=== PATIENT | male | born 1950 | race Caucasian/White ===

== ENCOUNTER 2020-08-26 20:03 | Emergency (ER) | payer OTHER ==
[2020-08-26] MEDS ORDERED: predniSONE 20 MG TAB ONE (20:34)
[2020-08-26] MEDS ORDERED: ALBUTEROL 2.5 MG/3 ML NEB SOL ONE (20:34)
[2020-08-26 21:01] LABS: Basophils % 0.8 % (0-1.3); Hematocrit 42.7 % (39.6-49.0); Lymphocytes % 20.4 % (15.3-44.8); MPV 8.4 fL (7.6-11.3); RBC Red Blood Cell Count 4.43 M/uL (4.33-5.43)
[2020-08-26 21:02] LABS: Protime INR 0.92
[2020-08-26 21:19] LABS: ALT/SGPT 28 U/L (12-78); AST/SGOT 16 U/L (15-37); Albumin 3.8 g/dL (3.4-5.0); Alkaline Phosphatase 84 U/L (45-117); BUN Blood Urea Nitrogen 12 mg/dL (7-18); Bicarbonate 30 mmol/L (21-32); Bilirubin Direct 0.2 mg/dL (0-0.2); Bilirubin Total 0.7 mg/dL (0.2-1.0); Glucose Level 112 mg/dL (74-106); Magnesium 2.3 mg/dL (1.8-2.4); NT PRO-BNP 302 pg/mL (<125); Potassium 4.3 mmol/L (3.5-5.1); Protein, Total 7.6 g/dL (6.4-8.2); Sodium Level 140 mmol/L (136-145); Troponin (Emerg Dept Use Only) < 0.02 ng/mL (0.0-0.045)
--- NOTE | 2020-08-26 22:00 | RAD REPORT ---
EXAM DESCRIPTION: RAD - Chest Single View - 08/26/2020 9:47 pm CLINICAL HISTORY: COPD;SOB Chest pain. COMPARISON: CHEST PA AND LAT 2 VIEW dated 08/25/2015; CHEST PA AND LAT 2 VIEW dated 08/15/2014; CHES T PA AND LAT 2 VIEW dated 02/14/2012; CHEST SINGLE VIEW dated 02/13/2009 FINDINGS: Portable technique limits examination quality. The lungs are emphysematous but grossly clear. The heart is normal in size. No displaced fractures. IMPRESSION: Prominent COPD.
[2020-08-26] MEDS ORDERED: LEVALBUTEROL 0.63 MG/3 ML NEB ONE (22:35)
[2020-08-26] MEDS ORDERED: LEVALBUTEROL 1.25 MG/3 ML NEB ONE (22:38)
--- NOTE | 2020-08-26 23:09 | ER ---
Nurse's Notes [facility] Name: Jamie Granda Age: 69 yrs Sex: Male : 1950 Arrival Date: 08/26/2020 Time: 20:03 Bed 2 Private MD: Diagnosis: Chronic obstructive pulmonary disease with (acute) exacerbation Presentation: 08/26 20:05 Chief complaint: EMS states: Reports he started having shortness of breath yesterday ea reports he took albuterol prior to EMS arrival without relief. EMS reports they gave one albuterol Atrovent treatment prior to arrival. Coronavirus screen: At this time, the client does not indicate any symptoms associated with coronavirus-19. Ebola Screen: No symptoms or risks identified at this time. Initial Sepsis Screen: Does the patient meet any 2 criteria? RR > 20 per min. Does the patient have a suspected source of infection? No. Patient's initial sepsis screen is negative. Risk Assessment: Do you want to hurt yourself or someone else? Patient reports no desire to harm self or others. Onset of symptoms was August 26, 2020. 20:05 Method Of Arrival: EMS: [facility] ea 20:05 Acuity: ABHISHEK 3 ea Triage Assessment: 20:13 General: Appears uncomfortable, Behavior is appropriate for age. Pain: Denies pain. ea Neuro: Level of Consciousness is awake, alert, obeys commands, Oriented to person, place, time, situation. Respiratory: Reports shortness of breath since yesterday Onset: The symptoms/episode began/occurred yesterday, the patient has mild shortness of breath. Historical: - Allergies: 20:13 PENICILLINS; ea 20:13 Wasps; ea - Home Meds: 20:13 Centrum Silver oral oral [Active]; carvedilol 6.25 mg oral tab 1 tab 2 times per day ea [Active]; irbesartan 300 mg oral tab 1 tab once daily [Active]; spironolactone 25 mg Oral tab 1 tab once daily [Active]; omega-3 fatty acids 1,000 mg oral cap [Active]; aspirin 81 mg Oral chew 1 tab once daily [Active]; Endur-Acin 500 mg oral TbER 1 tabs once daily [Active]; Viagra 100 mg Oral tab 1 tab once daily [Active]; epi pen as needed [Active]; albuterol sulfate 90 mcg/actuation Inhl HFAA [Active]; Anoro Ellipta 62.5-25 mcg/actuation inhalation dsdv 1 puff once daily [Active]; Nasacort 55 mcg Nasal spra [Active]; - Immunization history:: Adult Immunizations up to date. - Social history:: Smoking status: Patient denies any tobacco usage or history of. Screenin:04 Abuse screen: Denies threats or abuse. Nutritional screening: No deficits noted. ea Tuberculosis screening: No symptoms or risk factors identified. Fall Risk None identified. Assessment: 20:12 General: Appears in no apparent distress. Pain: Denies pain. Neuro: Level of ea Consciousness is awake, alert, obeys commands, Oriented to person, place, time, situation. Cardiovascular: Rhythm is sinus rhythm. Respiratory: Airway is patent Respiratory effort is even, labored, Respiratory pattern is tachypnea Breath sounds with wheezes. Derm: Skin is pink, warm \T\ dry. 21:30 Reassessment: Patient and/or family updated on plan of care and expected duration. Pain ea level reassessed. Patient is alert, oriented x 3, equal unlabored respirations, skin warm/dry/pink. 22:45 Reassessment: Patient and/or family updated on plan of care and expected duration. Pain ll2 level reassessed. Patient is alert, oriented x 3, equal unlabored respirations, skin warm/dry/pink. Vital Signs: 20:05 BP 149 / 96; Pulse 86; Resp 22; Temp 98.8; Pulse Ox 100% on 3 lpm NC; Weight 90.72 kg; ea Height 6 ft. 1 in. (185.42 cm); 20:30 BP 155 / 96; Pulse 78; Resp 20; Pulse Ox 98% ; ea 21:30 BP 128 / 83; Pulse 78; Resp 20; Pulse Ox 98% on 3 lpm NC; ea 20:05 Body Mass Index 26.39 (90.72 kg, 185.42 cm) ea ED Course: 20:03 Patient arrived in ED. am2 20:05 Afshin Resendez NP is PHCP. pm1 20:05 Dionte Packer MD is Attending Physician. pm1 20:08 Triage completed. ea 20:08 Patient has correct armband on for positive identification. Bed in low position. Call ea light in reach. Side rails up X2. 20:08 Arm band placed on right wrist. Patient placed in an exam room, on a stretcher, on ea oxygen, on aviation electronic warfare operator, on pulse oximetry. 20:45 Inserted saline lock: 20 gauge in right antecubital area, using aseptic technique. ea Blood collected. 20:56 Chinyere Whitley, FANNIE is Primary Nurse. ea 21:48 XRAY Chest (1 view) In Process Unspecified. EDMS 23:08 Daryn Flores MD is Referral Physician. pm1 23:34 No provider procedures requiring assistance completed. IV discontinued, intact, ll2 bleeding controlled, No redness/swelling at site. Pressure dressing applied. Administered Medications: 20:19 Not Given (Physician Discretion): Albuterol - atroVENT (3:1) (2.5 mg - 0.5 mg) 3 ml pm1 Nebulizer once 20:40 Drug: predniSONE 60 mg Route: PO; ea 21:35 Follow up: Response: No adverse reaction ea 20:40 Drug: Albuterol 5 mg Route: Inhalation; ea 21:30 Follow up: Response: No adverse reaction ea 22:16 CANCELLED (Physician Discretion): Xopenex 1.25 mg Inhalation once pm1 22:25 Drug: Xopenex (3) 1.25 mg Route: Inhalation; ll2 23:02 Drug: Tussionex Pennkinetic ER 5 ml Route: PO; ea 23:13 Follow up: Response: No adverse reaction ll2 23:32 Drug: AZITHromycin 500 mg Route: PO; ll2 23:32 Follow up: Response: Medication administered at discharge. ll2 Outcome: 23:09 Discharge ordered by . pm1 23:35 Discharged to home ambulatory. ll2 23:35 Condition: stable 23:35 Discharge instructions given to patient, Instructed on discharge instructions, follow up and referral plans. medication usage, Demonstrated understanding of instructions, follow-up care, medications, Prescriptions given X 4. 23:36 Patient left the ED. ll2 Addendum: 08/29/2020 10:10 Addendum: COVID-19 Result: Negative result given to RN to notify pt. Notified pt of i w negative COVID 19 swab results. Pt advised that even with a negative test result they should remain in isolation until symptom free for 3 days without medication. Pt also advised to return to the ED for worsening symptoms. Signatures: Dispatcher [employer] Mariely Fish, RN RN Afshin Alfonso, BÁRBARA NURSE AIDE pm1 Magnolia Huertas am2 Chinyere Whitley RN RN Chanel Temple RN RN ll2
--- NOTE | 2020-08-26 23:09 | EDPHYS ---
Physician Documentation [facility] Name: Jamie Granda Age: 69 yrs Sex: Male : 1950 Arrival Date: 08/26/2020 Time: 20:03 Bed 2 Private MD: ED Physician Dionte Packer HPI: 08/26 20:10 This 69 yrs old Male presents to ER via EMS with complaints of Breathing pm1 Difficulty. 20:10 The patient has shortness of breath at rest. Onset: The symptoms/episode began/occurred pm1 last night. Duration: The symptoms are continuous. The patient's shortness of breath is alleviated by nebulizer treatment, prior to arrival. Associated signs and symptoms: Pertinent positives: non-productive cough, wheezing, Pertinent negatives: chest pain, fever. Severity of symptoms: in the emergency department the symptoms have improved by EMS treatment, but worse prior to EMS arrival. The patient has not experienced similar symptoms in the past, Has not experienced a COPD exacerbation in the past. The patient has not recently seen a physician, Dr. Flores manages his COPD. Historical: - Allergies: 20:13 PENICILLINS; ea 20:13 Wasps; ea - Home Meds: 20:13 Centrum Silver oral oral [Active]; carvedilol 6.25 mg oral tab 1 tab 2 times per day ea [Active]; irbesartan 300 mg oral tab 1 tab once daily [Active]; spironolactone 25 mg Oral tab 1 tab once daily [Active]; omega-3 fatty acids 1,000 mg oral cap [Active]; aspirin 81 mg Oral chew 1 tab once daily [Active]; Endur-Acin 500 mg oral TbER 1 tabs once daily [Active]; Viagra 100 mg Oral tab 1 tab once daily [Active]; epi pen as needed [Active]; albuterol sulfate 90 mcg/actuation Inhl HFAA [Active]; Anoro Ellipta 62.5-25 mcg/actuation inhalation dsdv 1 puff once daily [Active]; Nasacort 55 mcg Nasal spra [Active]; - Immunization history:: Adult Immunizations up to date. - Social history:: Smoking status: Patient denies any tobacco usage or history of. ROS: 20:16 Constitutional: Negative for fever, chills, and weight loss, ENT: Negative for injury, pm1 pain, and discharge, Neck: Negative for injury, pain, and swelling, Cardiovascular: Negative for chest pain, palpitations, and edema. 20:16 Abdomen/GI: Negative for abdominal pain, nausea, vomiting, diarrhea, and constipation, Back: Negative for injury and pain, MS/Extremity: Negative for injury and deformity, Skin: Negative for injury, rash, and discoloration, Neuro: Negative for headache, weakness, numbness, tingling, and seizure. 20:16 Respiratory: Positive for cough, shortness of breath. Exam: 20:16 Constitutional: This is a well developed, well nourished patient who is awake, alert, pm1 and in no acute distress. Head/Face: Normocephalic, atraumatic. 20:16 Back: No spinal tenderness. No costovertebral tenderness. Full range of motion. Skin: Warm, dry with normal turgor. Normal color with no rashes, no lesions, and no evidence of cellulitis. MS/ Extremity: Pulses equal, no cyanosis. Neurovascular intact. Full, normal range of motion. 20:16 Cardiovascular: Exam negative for acute changes, Rate: normal, Rhythm: regular, Pulses: no pulse deficits are appreciated, Edema: is not appreciated. 20:16 Respiratory: the patient does not display signs of respiratory distress, Respirations: normal, Breath sounds: wheezing: is heard diffusely. 20:16 Abdomen/GI: Exam negative for acute changes, Inspection: abdomen appears normal, Palpation: abdomen is soft and non-tender. 20:16 Neuro: Exam negative for acute changes, Orientation: is normal, Motor: is normal, moves all fours. 20:43 ECG was reviewed by the Attending Physician. pm1 Vital Signs: 20:05 BP 149 / 96; Pulse 86; Resp 22; Temp 98.8; Pulse Ox 100% on 3 lpm NC; Weight 90.72 kg; ea Height 6 ft. 1 in. (185.42 cm); 20:30 BP 155 / 96; Pulse 78; Resp 20; Pulse Ox 98% ; ea 21:30 BP 128 / 83; Pulse 78; Resp 20; Pulse Ox 98% on 3 lpm NC; ea 20:05 Body Mass Index 26.39 (90.72 kg, 185.42 cm) ea MDM: 20:05 Patient medically screened. pm1 23:08 Data reviewed: vital signs. Data interpreted: Pulse oximetry: on room air is 98 %. pm1 Interpretation: normal. 23:08 Counseling: I had a detailed discussion with the patient and/or guardian regarding: the pm1 historical points, exam findings, and any diagnostic results supporting the discharge/admit diagnosis, lab results, radiology results, the need for outpatient follow up, a services clerk, to return to the emergency department if symptoms worsen or persist or if there are any questions or concerns that arise at home. 08/26 20:10 Order name: Basic Metabolic Panel; Complete Time: 22:10 pm1 08/26 20:10 Order name: CBC with Diff; Complete Time: 21:10 pm1 08/26 20:10 Order name: LFT's; Complete Time: 22:10 pm1 08/26 20:10 Order name: Magnesium; Complete Time: 22:10 pm1 08/26 20:10 Order name: NT PRO-BNP; Complete Time: 22:10 pm1 08/26 20:10 Order name: PT-INR; Complete Time: 21:10 pm1 08/26 20:10 Order name: Troponin (emerg Dept Use Only); Complete Time: 22:10 pm1 08/26 20:10 Order name: XRAY Chest (1 view); Complete Time: 22:10 pm1 08/26 20:10 Order name: Flu; Complete Time: 22:10 pm1 08/26 20:10 Order name: Strep; Complete Time: 22:10 pm1 08/26 20:10 Order name: COVID-19 pm1 08/26 21:21 Order name: Throat Culture [facility] 08/26 20:10 Order name: EKG; Complete Time: 20:11 pm08/26 20:10 Order name: Cardiac monitoring; Complete Time: 20:35 pm1 08/26 20:10 Order name: EKG - Nurse/Tech; Complete Time: 20:35 pm1 08/26 20:10 Order name: IV Saline Lock; Complete Time: 21:36 pm1 08/26 20:10 Order name: Labs collected and sent; Complete Time: 21:36 pm1 08/26 20:10 Order name: O2 Per Protocol; Complete Time: 21:36 pm1 08/26 20:10 Order name: O2 Sat Monitoring; Complete Time: 21:36 pm1 EC:43 Rate is 79 beats/min. Rhythm is regular, Normal Sinus Rhythm with No ectopy. No Q pm1 waves. T waves are Normal. No ST changes noted. Clinical impression: Normal ECG. Administered Medications: 20:19 Not Given (Physician Discretion): Albuterol - atroVENT (3:1) (2.5 mg - 0.5 mg) 3 ml pm1 Nebulizer once 20:40 Drug: predniSONE 60 mg Route: PO; ea 21:35 Follow up: Response: No adverse reaction ea 20:40 Drug: Albuterol 5 mg Route: Inhalation; ea 21:30 Follow up: Response: No adverse reaction ea 22:16 CANCELLED (Physician Discretion): Xopenex 1.25 mg Inhalation once pm1 22:25 Drug: Xopenex (3) 1.25 mg Route: Inhalation; ll2 23:02 Drug: Tussionex Pennkinetic ER 5 ml Route: PO; ea 23:13 Follow up: Response: No adverse reaction ll2 23:32 Drug: AZITHromycin 500 mg Route: PO; ll2 23:32 Follow up: Response: Medication administered at discharge. ll2 Disposition: 08/27 11:00 Co-signature as Attending Physician, Dionte Packer MD I agree with the assessment and lyndsey plan of care. Disposition: 08/26/20 23:09 Discharged to Home. Impression: Chronic obstructive pulmonary disease with (acute) exacerbation. - Condition is Stable. - Discharge Instructions: Chronic Obstructive Pulmonary Disease Exacerbation. - Prescriptions for Zithromax Z- Sage 250 mg Oral Tablet - take 1 tablet by ORAL route as directed for 5 days Day 1 - take two (2) tablets one time. Day 2, 3, 4 , 5 take one (1) tablet once daily.; 6 tablet. Albuterol Sulfate 90 mcg/actuation - inhale 1-2 puff by INHALATION route every 4-6 hours; 1 Inhaler. Guaifenesin AC 10- 100 mg/5 mL Oral Liquid - take 10 milliliter by ORAL route every 4 hours As needed; 240 milliliter. Medrol (Sage) 4 mg Oral Tablets, Dose Pack - take 1 tablet by ORAL route as directed - follow package instructions; 1 packet. - Medication Reconciliation Form, Thank You Letter, Antibiotic Education, Prescription Opioid Use form. - Follow up: Daryn Flores MD; When: 2 - 3 days; Reason: Recheck today's complaints, Continuance of care, Re-evaluation by your physician. - Problem is new. - Symptoms have improved. Signatures: Dispatcher [employer] EDDionte Shelton MD MD cha Marinas, Patrick, SCALE ADJUSTER SCALE ADJUSTER pm1 Chinyere Whitley, RN RN Chanel Temple RN RN ll2 Corrections: (The following items were deleted from the chart) 08/26 22:16 22:15 Xopenex 1.25 mg Inhalation once ordered. james pm1 23:36 23:09 08/26/2020 23:09 Discharged to Home. Impression: Chronic obstructive pulmonary ll2 disease with (acute) exacerbation. Condition is Stable. Forms are Medication Reconciliation Form, Thank You Letter, Antibiotic Education, Prescription Opioid Use. Follow up: Daryn Flores; When: 2 - 3 days; Reason: Recheck today's complaints, Continuance of care, Re-evaluation by your physician. Problem is new. Symptoms have improved. pm1
[2020-08-26] MEDS ORDERED: HYDROCODONE/CHLORPHEN 5 ML/OSYR ONE (23:14)
[2020-08-26] MEDS ORDERED: AZITHROMYCIN 250 MG TAB ONE (23:33)
[2020-08-27 06:46] VITALS: TEMP 98.8
[2020-08-27 06:48] VITALS: O2SAT 98
[2020-08-27 06:50] VITALS: BP 128/83
== END 2020-08-26 23:36 | disposition home or self-care (01) ==
LOC: ER 20:03
DX: J44.1 Chronic obstructive pulmonary disease with (acute) exacerbation (principal); Z20.828 Contact with and (suspected) exposure to other viral communicable diseases; Z79.82 Long term (current) use of aspirin; Z88.0 Allergy status to penicillin; Z91.038 Other insect allergy status
CPT/HCPCS: 93005; 87070; 85025; 80048; 36415; 83735; 85610; 80076; 87081; 84484; 83880; 87804 ×2; 71045; 99285; U0002; J7512

== ENCOUNTER 2025-01-13 11:36 | Inpatient (IN) | payer OTHER ==
--- OUTSIDE RECORDS SUMMARY | 2025-01-13 11:41 | XMS REPORT | Continuity of Care Document ---
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 Name Role Phone Sandra GUAN, Daryn Hodge Primary Care Physician [phone] Francois Engle Attending Clinician Unavailable Problems Condition Name Condition Details Condition Category Status Onset Date Resolution Date Last Treatment Date Treating Clinician Comments Source [id number] Benign prostatic hyperplasi a with lower urinary tract symptoms Problem [facility] [id number] Other obstructiv e and reflux uropathy Problem [facility] Elevated PSA Elevated PSA Problem [facility] [id number] Right inguinal hernia Problem [facility] Malignant tumor of prostate CA of prostate Problem [facility] [id number] Lower obstructiv e uropathy Problem [facility] [id number] S/P radiation > 12 weeks Problem Common [facility] [id number] BPH loc w/o ur obs/LUTS Problem [facility] [id number] Testicular atrophy Problem [facility] [id number] OAB (overactiv e bladder) Problem [facility] [id number] Prostate nodule Problem [facility] [id number] Cancer of prostate with intermedia te recurrence risk (stage T2b-c or [place] 7 or PSA 10-20) Problem Common [facility] Allergies, Adverse Reactions, Alerts Allergy Name Allergy Type Status Severity Reaction(s) Onset Date Inactive Date Treating Clinician Comments Source penicili in (Not Checked) Propensi ty to adverse reaction to drug Active 11-28 00:00: 00 Diego Honeycutt 0 Drug allergy Active Unknown [facility] 8890 Drug allergy Active Unknown [facility] Social History Social Habit Start Date Stop Date Quantity Comments Source Sex Assigned At [facility] History of Tobacco Use [facility] Smoking Status Start Date Stop Date Source Former Smoker 2024-11-22 00:00:00 2024-11-22 00:00:00 [facility] Medications Ordered Medication Name Filled Medication Name Start Date Stop Date Current Medication? Ordering Clinician Indication Dosage Frequency Signature (SIG) Comments Components Source spironolact one 25 mg tablet 11-28 00:00: 00 Yes 5mg Diego Honeycutt carvedilol 6.25 mg tablet 11-19 00:00: 00 Yes mg Diego Honeycutt spironolact one 25 mg tablet 11-19 00:00: 00 Yes mg Diego Honeycutt irbesartan 300 mg tablet 11-19 00:00: 00 Yes mg Diego Honeycutt albuterol sulfate HFA 90 mcg/actuati on aerosol inhaler 11-19 00:00: 00 Yes mcg/act uation Diego Honeycutt Trelegy Ellipta 100 mcg-62.5 mcg-25 mcg powder for inhalation - 00:00: 00 Yes mcg Diego Honeycutt solifenacin 5 mg tablet 2-16 00:00: 00 Yes mg Diego Honeycutt alfuzosin ER 10 mg tablet,exte nded release 24 hr 1- 00:00: 00 Yes mg Diego Honeycutt Solifenacin Succinate 5 MG Solifenacin Succinate 5 MG 2023-10 2-06 00:00: 00 No 1{table t} QD Solifenaci n Succinate 5 MG Tadalafil 5 MG Tadalafil 5 MG 2023-10 0-30 00:00: 00 No 1{table t} QD Tadalafil 5 MG prednisone 10 mg tablet 7-29 00:00: 00 Yes mg Diego Honeycutt Gentamicin 80mg Gentamicin 80mg 2-08 00:00: 00 No 240mg [facility] Carvedilol 6.25 MG Carvedilol 6.25 MG No Carvedilol 6.25 MG Centrum Silver - Centrum Silver - No Centrum Silver - Nasacort AQ Nasacort AQ No Na sacort AQ [place] 3 1200 MG [place] 3 1200 MG No 1{capsu le} QD [place] 3 1200 MG predniSONE 10 MG predniSONE 10 MG No 1{table t} QD predniSONE 10 MG Irbesartan 300 MG Irbesartan 300 MG No 1{table t} QD Irbesartan 300 MG Alfuzosin HCl ER 10 MG Alfuzosin HCl ER 10 MG No QD Alfuzosin HCl ER 10 MG Viagra 100 MG Viagra 100 MG No 1{table t_as_ne eded} QD Viagra 100 MG Endur-Acin 500 MG Endur-Acin 500 MG No 1{table t_with_ food} QD Endur-Acin 500 MG Spironolact one 25 MG Spironolact one 25 MG No 1{table t} Spironolac tone 25 MG Vital Signs Vital Name Observation Time Observation Value Comments S ource oximetry 2024-11-22 11:00:00 97 % Commo n [facility] respiratory rate 2024-11-22 11:00:00 18 /min [facility] blood pressure systolic 2024-11-22 11:00:00 136 mm[Hg] [facility] blood pressure diastolic 2024-11-22 11:00:00 80 mm[Hg] [facility] height 2024-11-22 11:00:00 73.5 [in_i] Comm on [facility] weight 2024-11-22 11:00:00 197 [lb_av] Comm on [facility] temperature 2024-11-22 11:00:00 97 [degF] Comm on [facility] bmi 2024-11-22 11:00:00 25.64 kg/m2 Comm on [facility] height 2024-09-07 09:15:00 73.5 [in_i] Comm on [facility] weight 2024-09-07 09:15:00 201.8 [lb_av] Co on [facility] temperature 2024-09-07 09:15:00 96.4 [degF] Com mon [facility] bmi 2024-09-07 09:15:00 26.26 kg/m2 Comm on [facility] oximetry 2024-09-07 09:15:00 96 % Commo n [facility] respiratory rate 2024-09-07 09:15:00 18 /min Common [facility] blood pressure systolic 2024-09-07 09:15:00 136 mm[Hg] Common [facility] blood pressure diastolic 2024-09-07 09:15:00 74 mm[Hg] [facility] height 2024-08-01 14:15:00 73.5 [in_i] Comm on [facility] weight 2024-08-01 14:15:00 199.0 [lb_av] Co mmon [facility] temperature 2024-08-01 14:15:00 97.2 [degF] Com mon [facility] bmi 2024-08-01 14:15:00 25.9 kg/m2 Commo n [facility] oximetry 2024-08-01 14:15:00 96 % Commo n [facility] respiratory rate 2024-08-01 14:15:00 18 /min Common [facility] blood pressure systolic 2024-08-01 14:15:00 132 mm[Hg] Common [facility] t [facility] blood pressure diastolic 2024-08-01 14:15:00 80 mm[Hg] [facility] height 2024-02-22 16:00:00 73.5 [in_i] Comm on [facility] weight 2024-02-22 16:00:00 202 [lb_av] Comm on [facility] temperature 2024-02-22 16:00:00 97.5 [degF] Com mon [facility] bmi 2024-02-22 16:00:00 26.29 kg/m2 Comm on [facility] oximetry 2024-02-22 16:00:00 96 % Commo n [facility] respiratory rate 2024-02-22 16:00:00 18 /min Common [facility] blood pressure systolic 2024-02-22 16:00:00 135 mm[Hg] [facility] blood pressure diastolic 2024-02-22 16:00:00 82 mm[Hg] [facility] height 2023-11-23 17:45:00 73.5 [in_i] Comm on [facility] weight 2023-11-23 17:45:00 209.2 [lb_av] Co mmon [facility] temperature 2023-11-23 17:45:00 97.2 [degF] Com [facility] bmi 2023-11-23 17:45:00 27.22 kg/m2 Comm on [facility] oximetry 2023-11-23 17:45:00 96 % Commo n [facility] respiratory rate 2023-11-23 17:45:00 18 /min Common [facility] blood pressure systolic 2023-11-23 17:45:00 128 mm[Hg] Common Spiri t [facility] blood pressure diastolic 2023-11-23 17:45:00 78 mm[Hg] [facility] height 2023-11-10 15:30:00 73.5 [in_i] Comm on [facility] weight 2023-11-10 15:30:00 200 [lb_av] Comm on [facility] temperature 2023-11-10 15:30:00 97.6 [degF] Com [facility] bmi 2023-11-10 15:30:00 26.03 kg/m2 Comm on [facility] oximetry 2023-11-10 15:30:00 99 % Commo n [facility] respiratory rate 2023-11-10 15:30:00 18 /min [facility] blood pressure systolic 2023-11-10 15:30:00 146 mm[Hg] Common [facility] blood pressure diastolic 2023-11-10 15:30:00 71 mm[Hg] [facility] height 2023-09-02 09:30:00 73.5 [in_i] Comm on [facility] weight 2023-09-02 09:30:00 203.8 [lb_av] Co mmon [facility] temperature 2023-09-02 09:30:00 97.2 [degF] Com mon [facility] bmi 2023-09-02 09:30:00 26.52 kg/m2 Comm on [facility] oximetry 2023-09-02 09:30:00 98 % Commo n [facility] respiratory rate 2023-09-02 09:30:00 18 /min [facility] blood pressure systolic 2023-09-02 09:30:00 128 mm[Hg] [facility] blood pressure diastolic 2023-09-02 09:30:00 78 mm[Hg] [facility] Heart Rate 2024-11-28 08:59:00 84.00 /min Luciakeagan Honeycutt Respiratory Rate 2024-11-28 08:59:00 Diego Honeycutt BP Systolic 2024-11-28 08:59:00 111 mm[Hg] Step lavelle Honeycutt BP Diastolic 2024-11-28 08:59:00 75 mm[Hg] Jameson Honeycutt Weight Measured 2024-11-28 08:59:00 191.40 pounds Diego Honeycutt Height Measured 2024-11-28 08:59:00 73.00 inches Diego Ting Honeycutt Body Temperature 2024-11-28 08:59:00 97.00 degrees Diego Maguire Yinka Procedures Procedure Date / Time Performed Performing Clinicia n Source PVR [facility]23-09[facility]02 [facility] Encounters Start Date/Time End Date/Time Encounter Type Admission Type Attending [facility] Care Department Encounter ID Source 2023-09-07 17:33:00 Outpatient Francois Engle ST[facility] STLMLC [id number] [facility] 2023-09-02 08:53:00 Outpatient Francois Engle [facility] STL[facility] [id number] [facility] 2023-09-01 10:44:00 Outpatient Francois Engle [facility] STLMLC [id number] [facility] 2021-10-28 12:18:05 Outpatient STLMLC STL[facility]C [id number] [facility] 2021-10-28 12:13:55 Outpatient STLMLC STLMLC [id number] [facility] 2024-11-28 08:57:29 2024-11-28 08:57:29 Outpatient SFA SFA [id number] Diego Maguire Yinka 2024-11-28 00:00:00 2024-11-28 00:00:00 Outpatient Visit SFA SFA [id number] Diego Maguire Yinka 2024-11-22 00:00:00 2024-11-22 00:00:00 OFFICE VISIT ESTAB PT LEVEL 4 STLMLC STLMLC [id number] [facility] 2024-09-07 00:00:00 2024-09-07 00:00:00 OFFICE VISIT ESTAB PT LEVEL 4 STLMLC STLMLC [id number] [facility] 2024-08-01 00:00:00 2024-08-01 00:00:00 OFFICE VISIT ESTAB PT LEVEL 3 STLMLC STLMLC [id number] [facility] 2024-07-16 00:00:00 2024-07-16 00:00:00 ([facility]) STLMLC STLMLC [id number] [facility] 2024-04-25 00:00:00 2024-04-25 00:00:00 (TEL) STLMLC STLMLC [id number] [facility] 2024-02-22 00:00:00 2024-02-22 00:00:00 OFFICE VISIT ESTAB PT LEVEL 4 STLMLC STLMLC [id number] [facility] 2024-02-09 00:00:00 2024-02-09 00:00:00 (WEB) STLMLC STLMLC [id number] [facility] 2023-12-08 00:00:00 2023-12-08 00:00:00 (TEL) STLMLC STLMLC [id number] [facility] 2023-11-23 00:00:00 2023-11-23 00:00:00 OFFICE VISIT ESTAB PT LEVEL 5 STLMLC STLMLC [id number] [facility] 2023-11-10 00:00:00 2023-11-10 00:00:00 (PROC) Procedure STLMLC STLMLC [id number] [facility] 2023-09-02 00:00:00 2023-09-02 00:00:00 OFFICE VISIT NEW PT LEVEL 3 STLMLC STLC [id number] [facility] Results Test Description Test Time Test Comments Results Result Co mments Source [facility], [id number] 07:03:00* Test Item Value Reference Range Interpretation Comme nts PSA, TOTAL (test code = 85291954) 0.09 ng/mL <=4.00 N The total PSA v alue from this assay system is standardized against the WHO standard. The test result will be approximately 20% lower when compared to the equimolar-standardized total PSA ([place]). Comparison of serial PSA results should be interpreted with this fact in mind. This test was performed using the Siemens chemiluminescent method. Values obtained from different assay methods cannot be usedinterchangeably. PSA levels, regardless ofvalue, should not be interpreted as absoluteevidence of the presence or absence of disease. FASTING:[facility],[id number] 21:30:00* Test Item Value Reference Range Interpretation Comme nts TESTOSTERONE, TOTAL, MALES (ADULT), [place] (test code = [id number]) 25 ng/dL 250-827 L In hypogonadal m ales, Testosterone, Total, LC/MS/MS,is the recommended assay due to the diminishedaccuracy of immunoassay at levels below 250 ng/dL.This test code (09968) must be collected in ared-top tube with no gel. FASTING:[facility], [id number] 21:30:00* Test Item Value Reference Range Interpretation Comme nts PSA, TOTAL (test code = [id number]) 3.13 ng/mL <=4.00 N The total PSA v alue from this assay system is standardized against the WHO standard. The test result will be approximately 20% lower when compared to the equimolar-standardized total PSA ([place]). Comparison of serial PSA results should be interpreted with this fact in mind. This test was performed using the Siemens chemiluminescent method. Values obtained from different assay methods cannot be usedinterchangeably. PSA levels, regardless ofvalue, should not be interpreted as absoluteevidence of the presence or absence of disease. FASTING:[facility] Notes Date/Time Note Provider Source Diego Honeycutt [facility]ly [facility]
[2025-01-13] MEDS ORDERED: LEVALBUTEROL 1.25 MG/3 ML NEB ONE (12:33)
[2025-01-13] MEDS ORDERED: METHYLPREDNISOLONE 125 MG INJ ONE (12:33)
[2025-01-13 13:13] LABS: PT Prothrombin Time 13.1 SECONDS (10-13.0); PTT, Activated Partial Thromb 28.8 SECONDS (27.2-37.4); Protime INR 1.16
[2025-01-13 13:17] LABS: Absolute Eosinophils 0.2 K/uL (0-0.5); Absolute Lymphocytes (CBC) 1.2 K/uL (0.7-4.9); Absolute Monocytes 1.1 K/uL (0.1-1.3); Absolute Neutrophil 9.5 K/uL (1.8-8.0); Basophils % 0.2 % (0-1.3); Eosinophils % 1.4 % (0-4.4); Hematocrit 35.1 % (39.6-49.0); Hemoglobin 12.2 g/dL (13.6-17.9); Lymphocytes % 9.8 % (15.3-44.8); MCHC 34.7 g/dL (32.0-36.0); MCV 95.1 fL (80-100); MPV 8.2 fL (7.6-11.3); Monocytes % 9.5 % (3.3-12.3); Neutrophils % 79.1 % (41.7-73.7); Platelets 153 thou/uL (152-406); RBC Red Blood Cell Count 3.69 M/uL (4.33-5.43); Red Cell Distribution Width 14.5 % (12.1-15.2)
[2025-01-13 13:23] LABS: Albumin 3.2 g/dL (3.4-5.0); Albumin/Globulin Ratio 0.8 (1.1-1.8); Anion Gap 9.7 mEq/L (5.0-15.0); Bilirubin Total 1.6 mg/dL (0.2-1.0); Globulin 3.9 g/dL (2.3-3.5); Potassium 3.7 mEq/L (3.5-5.1); Protein, Total 7.1 g/dL (6.4-8.2)
[2025-01-13 13:49] LABS: Influenza A Ag Negative; Influenza B Ag Negative; SARS-CoV-2 Antigen Rapid Res Negative (Negative)
[2025-01-13 14:34] LABS: Specific Gravity 1.025 (1.005-1.030); Sqamous Epithelial None Seen /HPF (None Seen); Urine Bacteria None Seen /HPF (<20); Urine Bilirubin NEGATIVE (Negative); Urine Blood Negative (Negative); Urine Clarity Clear (Clear); Urine Color Yellow (Yellow); Urine Crystals Unidentified Few /HPF (None Seen); Urine Culture Reflex Order NOT NEEDED; Urine Glucose NEGATIVE (Negative); Urine Ketones NEGATIVE (Negative); Urine Microscopic Reflex YN ORDER UMIC; Urine Mucus Slight /HPF (None Seen); Urine Nitrite NEGATIVE (Negative); Urine Protein NEGATIVE (Negative); Urine RBC <5 /HPF (None Seen); Urine Urobilinogen 3+ (Normal); Urine WBC <5 /HPF (<5); Urine WBC Clump Rare /HPF (None Seen); Urine pH 6.5 (5.0-7.0)
--- NOTE | 2025-01-13 14:54 | RAD REPORT ---
EXAMINATION: ONE VIEW CHEST XR CLINICAL INDICATION: Male, 74 years old.,COUGH TECHNIQUE: Frontal chest projection is submitted. Examination is limited by patient positioning and t echnique. COMPARISON: 05/18/2024 FINDINGS: The lungs are diffusely emphysematous. Streaky opacities throughout the right lung progressive is jose or exam, a minimal opacities at the left perihilar to basal region. No pneumothorax or sizable effusion. The heart is normal in size. Mediastinal contours are unremarkable. IMPRESSION: Progressive streaky airspace opacities worse on the right, concerning for infection or pneumonia.
[2025-01-13] MEDS ORDERED: Levofloxacin500mg IV 500 MG/100 ML BAG IV ONE (15:22)
[2025-01-13] MEDS ORDERED: ACETAMINOPHEN 500 MG TAB PO PRN (15:32)
[2025-01-13] MEDS ORDERED: ONDANSETRON 4 MG/2 ML VIAL IV PRN (15:32)
[2025-01-13] MEDS ORDERED: MORPHINE 2 MG/ML SYR IV PRN (15:32)
--- NOTE | 2025-01-13 16:10 | EDPHYS ---
Physician Documentation [facility] Name: Jamie Granda Age: 74 yrs Sex: Male : 1950 Arrival Date: 01/13/2025 Time: 11:36 Bed 4 Private MD: ED Physician Giorgi Campbell HPI: 01/13 14:34 This 74 yrs old Male presents to ER via Wheelchair with complaints of Flu Symptoms, rn Breathing Difficulty. 14:36 The patient or guardian reports cough, flu symptoms. Onset: The symptoms/episode rn began/occurred 1 week(s) ago. Severity of symptoms: At their worst the symptoms were mild, in the emergency department the symptoms are unchanged. Modifying factors: The symptoms are alleviated by nothing, the symptoms are aggravated by nothing. The patient has not experienced similar symptoms in the past. The patient has not recently seen a physician. Patient reports sick for 1 week. Has productive cough and mild shortness of breath with exertion. No chest pain. No hemoptysis. No history of DVT or PE. Does have COPD and used albuterol prior to coming in. Patient has not had antibiotics for this infection and overall feels worse.. Historical: - Allergies: 12:03 PENICILLINS; kc6 12:03 Wasps; kc6 - PMHx: 12:03 Chronic obstructive lung disease; asbestos; kc6 - Immunization history:: Adult Immunizations up to date. - Infectious Disease History:: Denies. - Social history:: Smoking status: Patient/guardian denies using tobacco, the patient reports quitting approximately 25 years ago. - Family history:: not pertinent. - Hospitalizations: : No recent hospitalization is reported. ROS: 14:36 Constitutional: Negative for fever, chills, and weight loss, Cardiovascular: Negative rn for chest pain, palpitations, and edema, Respiratory: Positive for cough and shortness of breath Abdomen/GI: Negative for abdominal pain, nausea, vomiting, diarrhea, and constipation, MS/Extremity: Negative for injury and deformity, Skin: Negative for injury, rash, and discoloration, Neuro: Negative for headache, weakness, numbness, tingling, and seizure, Exam: 13:38 ECG was reviewed by the Attending Physician. rn 14:36 Constitutional: This is a well developed, well nourished patient who is awake, alert, rn and in no acute distress. Cardiovascular: Regular rate and rhythm. No pulse deficits. Respiratory: Mild tachypnea Neuro: Awake and alert, GCS 15 Vital Signs: 12:02 BP 124 / 69; Pulse 85; Resp 19 S; Temp 98.6(O); Pulse Ox 100% on R/A; Weight 90.26 kg kc6 (M); Height 6 ft. 1 in. (R); 14:18 BP 115 / 66; Pulse 87; Resp 17 S; Pulse Ox 96% on R/A; kc6 15:20 BP 112 / 64; Pulse 78; Resp 17 S; Pulse Ox 97% on R/A; kc6 12:02 Body Mass Index 26.25 (90.26 kg, 185.42 cm) kc6 MDM: 11:43 Medical Screening Exam initiated rn 16:08 Differential Diagnosis: Influenza Upper Respiratory Infection Sinusitis Viral Syndrome rn Pneumonia. Data reviewed: vital signs, nurses notes, lab test result(s), radiologic studies, plain films, and as a result, I will admit patient. Consideration of Admission/Observation Patient was admitted/placed on observation. Escalation of care including admission/observation considered. Care significantly affected by the following chronic conditions: Chronic Obstructive Pulmonary Disease. Counseling: I had a detailed discussion with the patient and/or guardian regarding the historical points, exam findings, and any diagnostic results supporting the discharge/admit diagnosis, lab results, radiology results, the need for further work-up and treatment in the hospital. Response to treatment: the patient's symptoms have mildly improved after treatment, and as a result, I will admit patient. 01/13 11:46 Order name: COVID-19 Ag + Flu A+B Ag; Complete Time: 14:19 rn 01/13 11:46 Order name: Group A Streptococcus Rapid; Complete Time: 14:19 rn 01/13 12:19 Order name: Blood Culture Adult (2) rn 01/13 12:19 Order name: CBC with Diff; Complete Time: 14:19 rn 01/13 12:19 Order name: CMP; Complete Time: 14:19 rn 01/13 12:19 Order name: Lactate w/ 2H reflex if indic.; Complete Time: 14:19 rn 01/13 12:19 Order name: Protime (+inr); Complete Time: 14:19 rn 01/13 12:19 Order name: Ptt, Activated; Complete Time: 14:19 rn 01/13 12:19 Order name: BNP; Complete Time: 14:19 rn 01/13 12:19 Order name: Urinalysis w/ reflexes; Complete Time: 15:03 rn 01/13 13:51 Order name: Throat Culture EDMS 01/13 15:37 Order name: Basic Metabolic Panel EDMS 01/13 15:37 Order name: Basic Metabolic Panel EDMS 01/13 15:37 Order name: Basic Metabolic Panel EDMS 01/13 15:37 Order name: Basic Metabolic Panel EDMS 01/13 15:37 Order name: Basic Metabolic Panel EDMS 01/13 15:37 Order name: Basic Metabolic Panel EDMS 01/13 15:37 Order name: Basic Metabolic Panel EDMS 01/13 15:37 Order name: Basic Metabolic Panel EDMS 01/13 15:37 Order name: CBC with Automated Diff EDMS 01/13 15:37 Order name: CBC with Automated Diff EDMS 01/13 15:37 Order name: CBC with Automated Diff EDMS 01/13 15:37 Order name: CBC with Automated Diff EDMS 01/13 15:37 Order name: CBC with Automated Diff EDMS 01/13 15:37 Order name: CBC with Automated Diff EDMS 01/13 15:37 Order name: CBC with Automated Diff EDMS 01/13 15:37 Order name: CBC with Automated Diff EDMS 01/13 15:37 Order name: Magnesium EDMS 01/13 15:37 Order name: Magnesium EDMS 01/13 15:37 Order name: Magnesium EDMS 01/13 15:37 Order name: Magnesium EDMS 01/13 15:37 Order name: Magnesium EDMS 01/13 15:37 Order name: Magnesium EDMS 01/13 15:37 Order name: Magnesium EDMS 01/13 15:37 Order name: Magnesium EDMS 01/13 16:17 Order name: Sputum Culture EDMS 01/13 12:09 Order name: XRAY Chest (1 view); Complete Time: 15:03 rn 01/13 12:19 Order name: EKG; Complete Time: 12:20 rn 01/13 12:19 Order name: Accucheck; Complete Time: 12:29 rn 01/13 12:19 Order name: Cardiac monitoring; Complete Time: 12:29 rn 01/13 12:19 Order name: EKG - Nurse/Tech; Complete Time: 13:14 rn 01/13 12:19 Order name: IV Saline Lock - Large Bore; Complete Time: 12:49 rn 01/13 12:19 Order name: Labs collected and sent; Complete Time: 12: rn 01/13 12:19 Order name: O2 Per Protocol; Complete Time: 12: rn 01/13 12:19 Order name: O2 Sat Monitoring; Complete Time: 12 rn 01/13 12:19 Order name: Vital Signs; Complete Time: : rn EC:38 Rate is 78 beats/min. Rhythm is regular. QRS [place] is Normal. DE interval is normal. QRS rn interval is normal. QT interval is normal. No Q waves. T waves are Normal. No ST changes noted. Clinical impression: Normal ECG. Interpreted by me. Reviewed by me. Administered Medications: 12:49 Drug: MethylPrednisoLONE IVP 125 mg IVP once Route: IVP; Site: right forearm; bp 14:18 Follow up: Response: No adverse reaction kc6 12:49 Drug: Levalbuterol Inhalation 1.25 mg Inhalation once Route: Inhalation; bp 14:18 Follow up: Response: No adverse reaction kc6 15:24 Drug: levofloxacin IVPB 500 mg 100 ml IVPB once over 60 mins Volume: 100 ml; Route: bp IVPB; Infused Over: 60 mins; Site: right forearm; Disposition Summary: 01/13/25 16:09 Hospitalization Ordered Notes: Hospitalization Status: Inpatient Admission rn Provider: Latonya Forbes rn [facility] ([facility] rn Condition: Stable rn Problem: new rn Symptoms: have improved rn Bed/Room Type: Standard rn Room Assignment: 225(01/13/25 16:29) eb Diagnosis - Pneumonia, unspecified organism rn - COPD/ Chronic obstructive pulmonary disease with (acute) exacerbation rn Forms: - Medication Reconciliation Form rn - SBAR form rn - Leadership Thank You Letter rn Signatures: Dispatcher [employer] Giorgi Mora MD MD rn Peltier, Brian RN Rosalina Rondon Kaitlyn RN RN kc6 Corrections: (The following items were deleted from the chart) 16:29 16:09 rn eb
--- NOTE | 2025-01-13 16:10 | ER ---
Nurse's Notes [facility] Name: Jamie Granda Age: 74 yrs Sex: Male : 1950 Arrival Date: 01/13/2025 Time: 11:36 Bed 4 Private MD: Diagnosis: Pneumonia, unspecified organism;COPD/ Chronic obstructive pulmonary disease with (acute) exacerbation Presentation: 01/13 12:02 Chief complaint: Patient states: flu like symptoms with subjective fever as high as 104 kc6 since November. pt reports low grade temp of 99 last PM and hx of COPD and asbestos. denies CP. Coronavirus screen: At this time, the client does not indicate any symptoms associated with coronavirus-19. Ebola Screen: No symptoms or risks identified at this time. Initial Sepsis Screen: Does the patient meet any 2 criteria? No. Patient's initial sepsis screen is negative. Does the patient have a suspected source of infection? No. Patient's initial sepsis screen is negative. Risk Assessment: Do you want to hurt yourself or someone else? Patient reports no desire to harm self or others. Onset of symptoms was January 13, 2025. 12:02 Method Of Arrival: Wheelchair kc6 12:02 Acuity: ABHISHEK 3 kc6 Historical: - Allergies: 12:03 PENICILLINS; kc6 12:03 Wasps; kc6 - PMHx: 12:03 Chronic obstructive lung disease; asbestos; kc6 - Immunization history:: Adult Immunizations up to date. - Infectious Disease History:: Denies. - Social history:: Smoking status: Patient/guardian denies using tobacco, the patient reports quitting approximately 25 years ago. - Family history:: not pertinent. - Hospitalizations: : No recent hospitalization is reported. Screenin:04 [facility] ED Fall Risk Assessment (Adult) History of falling in the last 3 months, kc6 including since admission No falls in past 3 months (0 pts) Confusion or Disorientation No (0 pts) Intoxicated or Sedated No (0 pts) Impaired Gait No (0 pts) Mobility Assist Device Used No (0 pt) Altered Elimination No (0 pt) Score/Fall Risk Level 0 - 2 = Low Risk Oriented to surroundings, Maintained a safe environment. Abuse screen: Denies threats or abuse. Denies injuries from another. Nutritional screening: No deficits noted. Tuberculosis screening: No symptoms or risk factors identified. Assessment: 12:02 General: Appears in no apparent distress. uncomfortable, well groomed, well developed, kc6 Behavior is calm, cooperative, appropriate for age, Reports fever for > 3 days, feeling ill for > 3 days, fatigue for >3 days. Neuro: Level of Consciousness is awake, alert, obeys commands, Oriented to person, place, time, situation, Appropriate for age. Cardiovascular: Denies chest pain, Capillary refill < 3 seconds Rhythm is regular. Respiratory: Reports shortness of breath at rest on exertion Airway is patent Trachea midline Respiratory effort is even, labored, pursed lip, using tripod position, Respiratory pattern is symmetrical, Breath sounds are diminished bilaterally. GI: No signs and/or symptoms were reported involving the gastrointestinal system. : No signs and/or symptoms were reported regarding the genitourinary system. EENT: No signs and/or symptoms were reported regarding the EENT system. Derm: No signs and/or symptoms reported regarding the dermatologic system. Skin is intact, is healthy with good turgor, Skin is pink, warm \T\ dry. Musculoskeletal: No signs and/or symptoms reported regarding the musculoskeletal system. Circulation, motion, and sensation intact. Range of motion: intact in all extremities. 13:02 Reassessment: Patient appears in no apparent distress at this time. No changes from kc6 previously documented assessment. Patient and/or family updated on plan of care and expected duration. Pain level reassessed. Patient is alert, oriented x 3, equal unlabored respirations, skin warm/dry/pink. 14:17 Reassessment: Patient appears in no apparent distress at this time. No changes from kc6 previously documented assessment. Patient and/or family updated on plan of care and expected duration. Pain level reassessed. Patient is alert, oriented x 3, equal unlabored respirations, skin warm/dry/pink. 15:20 Reassessment: Patient appears in no apparent distress at this time. No changes from kc6 previously documented assessment. Patient and/or family updated on plan of care and expected duration. Pain level reassessed. Patient is alert, oriented x 3, equal unlabored respirations, skin warm/dry/pink. Vital Signs: 12:02 BP 124 / 69; Pulse 85; Resp 19 S; Temp 98.6(O); Pulse Ox 100% on R/A; Weight 90.26 kg kc6 (M); Height 6 ft. 1 in. (R); 14:18 BP 115 / 66; Pulse 87; Resp 17 S; Pulse Ox 96% on R/A; kc6 15:20 BP 112 / 64; Pulse 78; Resp 17 S; Pulse Ox 97% on R/A; kc6 12:02 Body Mass Index 26.25 (90.26 kg, 185.42 cm) kc6 ED Course: 11:42 Patient arrived in ED. cj3 11:43 Giorgi Campbell MD is Attending Physician. rn 12:02 Diana Richardson RN is Primary Nurse. kc6 12:03 Triage completed. kc6 12:03 Arm band placed on. kc6 12:04 Patient has correct armband on for positive identification. Bed in low position. Call kc6 light in reach. Side rails up X 1. Adult w/ patient. Pulse ox on. NIBP on. Door closed. Noise minimized. Lights dimmed. Warm blanket given. Pillow given. Verbal reassurance given. 12:04 Patient maintains SpO2 saturation greater than 95% on room air. kc6 12:50 Inserted saline lock: 22 gauge in right forearm, using aseptic technique. Blood bp collected. Flushed with 10 mL NS. 12:50 Initial lab(s) drawn, by me, sent to lab. First set of blood cultures drawn by me, bp Second set of blood cultures drawn by me, COVID swab sent to lab. Flu and/or RSV swab sent to lab. Strep swab sent to lab. 13:14 EKG done, by ED staff, reviewed by Giorgi Campbell MD. em1 13:42 XRAY Chest (1 view) In Process Unspecified. EDMS 14:12 Assisted to bathroom. kc6 14:26 Urine collected: clean catch specimen, clear. kc6 16:09 Latonya Forbes MD is Hospitalizing Provider. rn Administered Medications: 12:49 Drug: MethylPrednisoLONE IVP 125 mg IVP once Route: IVP; Site: right forearm; bp 14:18 Follow up: Response: No adverse reaction kc6 12:49 Drug: Levalbuterol Inhalation 1.25 mg Inhalation once Route: Inhalation; bp 14:18 Follow up: Response: No adverse reaction kc6 15:24 Drug: levofloxacin IVPB 500 mg 100 ml IVPB once over 60 mins Volume: 100 ml; Route: bp IVPB; Infused Over: 60 mins; Site: right forearm; Outcome: 16:09 Decision to Hospitalize by Provider. rn 16:59 Patient left the ED. aa5 Signatures: Dispatcher [employer] EDGiorgi Galicia MD MD rn Martinez, Eric em1 Denia Dozier RN RN aa5 Pravin Pandya RN RN bp Campbell, Kaitlyn, RN RN 6 Aminta Duffy 3
--- NOTE | 2025-01-13 16:24 | P.HP ---
Certification for Inpatient Patient admitted to: Inpatient With expected LOS: >2 Midnights Practitioner: I am a practitioner with admitting privileges, knowledge of patient current condition, hospital course, and medical plan of care. Services: Services provided to patient in accordance with Admission requirements found in Title 42 Section 412.3 of the Code of Federal Regulations Patient History Date of Service: 01/13/25 Reason for admission: Cough and shortness of breath History of Present Illness: 74-year-old male with history of COPD, prostate cancer, admitted for 2-week history of cough, shortness of breath. Patient stated that this morning, was having more productive cough with thicker sputum production. Other associated symptoms include fever and chills for 3 days prior to presentation. In light of the symptoms, patient then came to the emergency room. In the ER, chest x-ray showed possible right-sided pneumonia Allergies Penicillins Allergy (Verified 04/24/24 07:40) Anaphylaxis wasp sting Allergy (Uncoded 04/24/24 07:40) Swelling Home Medications: Albuterol Sulfate [Proair Digihaler] 2 puff IH Q4HP PRN 03/06/24 Alfuzosin HCl [Alfuzosin HCl ER] 10 mg PO BEDTIME 03/06/24 Aspirin Chewable [Aspirin Chewable*] 81 mg PO DAILY 03/06/24 EPINEPHrine [Epinephrine] 0.15 mg IJ PRN PRN 03/06/24 Fluticasone/Umeclidin/Vilanter [Trelegy Ellipta 100-62.5-25] 1 each IH DAILY 03/06/24 Irbesartan 300 mg PO DAILY 03/06/24 Multivit-Min/FA/Lycopen/Lutein [Centrum Silver Tablet] 1 each PO DAILY 03/06/24 Niacin (Inositol Niacinate) [Niacin 500 mg Capsule] 500 mg PO BEDTIME 03/06/24 [place]-3S/Dha/Epa/Fish Oil [[place]-3 Fish Oil 1,200 mg Sfgl] 1 each PO BEDTIME 03/06/24 Sildenafil Citrate [Viagra] 100 mg PO PRN PRN 03/06/24 Spironolactone [Aldactone*] 25 mg PO DAILY 03/06/24 Triamcinolone Acetonide [Nasacort] 10.8 ml NS BIDP PRN 03/06/24 carvediloL [Carvedilol] 6.25 mg PO BID 03/06/24 predniSONE [Deltasone*] 10 mg PO DAILYPRN PRN 03/06/24 Codeine/APAP [Tylenol #3*] 1 tab PO Q6H PRN #12 tab 04/24/24 Review of Systems 10-point ROS is otherwise unremarkable Physical Examination - Physical Exam General: Alert, Oriented x3 HEENT: Atraumatic Neck: Supple Respiratory: Clear to auscultation bilaterally Cardiovascular: Normal pulses, Regular rate/rhythm Gastrointestinal: Normal bowel sounds, Soft and benign, Non-distended Musculoskeletal: No clubbing, No swelling - Studies Laboratory Data (last 24 hrs) 01/13/25 01/13/25 01/13/25 12:50 12:50 12:50 WBC 12.00 H Hgb 12.2 L Hct 35.1 L Plt Count 153 PT 13.1 H INR 1.16 APTT 28.8 Sodium 136 Potassium 3.7 BUN 13 Creatinine 0.95 Glucose 156 H Total Bilirubin 1.6 H AST 17 ALT 26 Alkaline Phosphatase 85 Assessment and Plan - Plan 1. Productive cough, subjective fevers - Chest x-ray suggestive of right-sided pneumonia - On empiric antibiotics for community acquired pneumonia - Sputum cultures ordered - Consulted patient's regulatory leader, Dr. Flores 2. History of COPD - Does not appear to be in exacerbation, no wheezes noted - On scheduled nebs 3. History of essential hypertension - Resume home meds when reconciled 4. DVT prophylaxis - Subcu Lovenox Full code - Advance Directives Does patient have a Living Will: No Does patient have a Durable POA for Healthcare: No - Code Status/Comfort Care Code Status Assessed: Yes
[2025-01-13] MEDS: ENOXAPARIN 40 MG/0.4 ML SQ SCH (17:00)
[2025-01-13] MEDS ORDERED: METHYLPREDNISOLONE 40 MG INJ IV SCH (17:00)
[2025-01-13 17:24] VITALS: O2SAT 97; BMI 25.3
[2025-01-13] MEDS: BUDESONIDE 0.25 MG/2 ML NEB NEB SCH (19:55)
[2025-01-13] MEDS: ALBUTEROL 2.5 MG/3 ML NEB SOL NEB SCH (19:55)
[2025-01-13] MEDS: IPRATROPIUM BROM 0.5MG/2.5ML NEB SCH (19:55)
[2025-01-13] MEDS ORDERED: DOXYCYCLINE 100 MG CAP PO SCH (21:00)
[2025-01-14 04:46] LABS: Absolute Lymphocytes (CBC) 0.9 K/uL (0.7-4.9); Absolute Monocytes 0.5 K/uL (0.1-1.3); Absolute Neutrophil 7.8 K/uL (1.8-8.0); Basophils % 0.1 % (0-1.3); Hematocrit 32.1 % (39.6-49.0); Hemoglobin 11.3 g/dL (13.6-17.9); Lymphocytes % 9.5 % (15.3-44.8); MCH 33.7 pg (27.0-35.0); MCHC 35.4 g/dL (32.0-36.0); MCV 95.1 fL (80-100); MPV 8.3 fL (7.6-11.3); Monocytes % 5.5 % (3.3-12.3); Neutrophils % 84.9 % (41.7-73.7); Platelets 153 thou/uL (152-406); RBC Red Blood Cell Count 3.37 M/uL (4.33-5.43); Red Cell Distribution Width 14.7 % (12.1-15.2)
[2025-01-14 05:01] LABS: Anion Gap 9.2 mEq/L (5.0-15.0); Magnesium 1.9 mg/dL (1.6-2.4); Potassium 4.2 mEq/L (3.5-5.1)
--- NOTE | 2025-01-14 07:22 | P.PN ---
Date of Service: 01/14/25 subjective Admitted with cough shortness of breath, treated for pneumonia Review of Systems 10-point ROS is otherwise unremarkable Physical Examination - Physical Exam vital signs reviewed General: Alert, Oriented x3 HEENT: Atraumatic Neck: Supple Respiratory: Clear to auscultation bilaterally Cardiovascular: Normal pulses, Regular rate/rhythm Gastrointestinal: Normal bowel sounds, Soft and benign, Non-distended Musculoskeletal: No clubbing, No swelling Assessment and Plan - Plan 1. Acute hypoxic respiratory failure secondary to right lobe pneumonia - Chest x-ray suggestive of right-sided pneumonia - On empiric antibiotics for community acquired pneumonia - Sputum cultures ordered - Consulted patient's tube bender, Dr. Flores 2. History of COPD - Does not appear to be in exacerbation, no wheezes noted - On scheduled nebs 3. History of essential hypertension - Resume home meds when reconciled 4. DVT prophylaxis - Subcu Lovenox Full code - Advance Directives Does patient have a Living Will: No Does patient have a Durable POA for Healthcare: No - Code Status/Comfort Care Code Status Assessed: Yes
[2025-01-14] MEDS: AZITHROMYCIN 250 MG TAB PO SCH (10:18)
[2025-01-14] MEDS: CEFTRIAXONE 1,000 MG in NA CHLORIDE 0.9% 50 ML IVPB SCH (10:19)
--- NOTE | 2025-01-14 10:49 | EKG ---
Test Date: 2025-01-13 Test Time: 13:11:52 Maintenance Manager: TWILA MEASUREMENT RESULTS: Intervals: Rate: 78 NE: 154 QRSD: 90 QT: 394 QTc: 449 Eads: P: 19 NE: 154 QRS: 58 T: 49 INTERPRETIVE STATEMENTS: Normal sinus rhythm Normal ECG Compared to ECG 08/26/2020 20:29:46 No significant changes Electronically Signed On 01-14-25 10:47:38 CDT by Jay Jay Jane
--- NOTE | 2025-01-14 11:50 | P.CNS ---
Date of Consult: 01/14/25 Reason for Consult: COPD exacerbation Chief Complaint: Cough and shortness of breath History of Present Illness: Patient is 74 years of age with a history of COPD he was doing fine until then recently in January was fairly active working outside developed some fever cough congestion productive phlegm became acutely short of breath and it appeared in the emergency room patient does have a history of COPD takes Trelegy was is currently doing well Allergies Penicillins Allergy (Verified 04/24/24 07:40) Anaphylaxis wasp sting Allergy (Uncoded 04/24/24 07:40) Swelling Home Medications: Albuterol Sulfate [Proair Digihaler] 2 puff IH Q4HP PRN 03/06/24 Alfuzosin HCl [Alfuzosin HCl ER] 10 mg PO BEDTIME 03/06/24 Aspirin Chewable [Aspirin Chewable*] 81 mg PO BEDTIME 03/06/24 Fluticasone/Umeclidin/Vilanter [Trelegy Ellipta 100-62.5-25] 1 each IH DAILY 03/06/24 Irbesartan 300 mg PO DAILY 03/06/24 Multivit-Min/FA/Lycopen/Lutein [Centrum Silver Tablet] 1 each PO DAILY 03/06/24 Niacin (Inositol Niacinate) [Niacin 500 mg Capsule] 500 mg PO BEDTIME 03/06/24 [place]-3S/Dha/Epa/Fish Oil [[place]-3 Fish Oil 1,200 mg Sfgl] 1 each PO BEDTIME 03/06/24 Spironolactone [Aldactone*] 12.5 mg PO DAILY 03/06/24 Triamcinolone Acetonide [Nasacort] 10.8 ml NS BIDP PRN 03/06/24 carvediloL [Carvedilol] 6.25 mg PO BID 03/06/24 - Past Medical/Surgical History Diabetic: No -: COPD -: prostate cancer -: r hip replacement 2018 -: hernia -: procedure to protect colon form prostate radiation - Social History Alcohol use: No CD- Drugs: No Caffeine use: Yes Place of Residence: Home Review of Systems 10-point ROS is otherwise unremarkable General: Weakness Respiratory: Cough, Shortness of Breath Physical Examination Temp Pulse Resp BP Pulse Ox 97.8 F 78 18 127/70 93 01/14/25 08:00 01/14/25 08:00 01/14/25 08:00 01/14/25 08:00 01/14/25 08:00 General: Alert, Oriented x3 Neck: Supple Respiratory: Clear to auscultation bilaterally, Diminished Cardiovascular: No edema, Regular rate/rhythm, Normal S1 S2 Gastrointestinal: Normal bowel sounds, Soft and benign Laboratory Data (last 24 hrs) 01/13/25 01/13/25 01/13/25 12:50 12:50 12:50 WBC 12.00 H Hgb 12.2 L Hct 35.1 L Plt Count 153 PT 13.1 H INR 1.16 APTT 28.8 Sodium 136 Potassium 3.7 BUN 13 Creatinine 0.95 Glucose 156 H Total Bilirubin 1.6 H AST 17 ALT 26 Alkaline Phosphatase 85 - Problems (1) COPD exacerbation Current Visit: Yes Status: Acute Plan: Patient is 74 years of age with a history of COPD compliant with Trelegy was doing well developed acute onset of shortness of breath with some productive phlegm chest x-ray shows COPD changes with upper lobe bullous areas he is doing well stable for discharge on prednisone 10 twice a day for a week levofloxacin 750 mg daily continue with Trelegy labs chemistries reviewed white count is normal now normal was mildly elevated chest x-ray reviewed oxygenation satisfactory stable for discharge
--- NOTE | 2025-01-14 11:51 | P.DS ---
Admission Date: 01/13/25 Discharge Date: 01/14/25 Disposition: ROUTINE DISCHARGE Discharge Condition: GOOD Reason for Admission: Cough and shortness of breath Brief History of Present Illness: 74-year-old male with history of COPD, prostate cancer, admitted for 2-week history of cough, shortness of breath. Patient stated that this morning, was having more productive cough with thicker sputum production. Other associated symptoms include fever and chills for 3 days prior to presentation. In light of the symptoms, patient then came to the emergency room. In the ER, chest x-ray showed possible right-sided pneumonia - Physical Exam General: Alert, Oriented x3 HEENT: Atraumatic Neck: Supple Respiratory: Clear to auscultation bilaterally Cardiovascular: Normal pulses, Regular rate/rhythm Gastrointestinal: Normal bowel sounds, Soft and benign, Non-distended Musculoskeletal: No clubbing, No swelling Hospital Course: 74-year-old male with history of COPD, prostate cancer, admitted for 2-week history of cough, shortness of breath. Patient stated that this morning, was having more productive cough with thicker sputum production. Other associated symptoms include fever and chills for 3 days prior to presentation. In light of the symptoms, patient then came to the emergency room. In the ER, chest x-ray showed possible right-sided pneumonia. Admitted for pneumonia, improved with nebulizers, IV antibiotics. Currently on room air. Stable to discharge home with pulmonary after discharge Discharge home on Prednisone 10 mg, 1 twice daily for 5 days, #10 Antibiotics, azithromycin 1 daily for 3 days, (treated total for 5 days)#3 cefuoxime 500 mg, 1 twice daily for 3 days, #6 Assessment Right lower lobe pneumonia-improved on antibiotics, nebulizers, stable to discharge home, follow-up with pulmonary after discharge History of COPD-resume home meds after discharge Hypertension-resume home meds after discharge INSTRUCTIONS: Physician Discharge Instructions: -Follow-up with PCP in 1 to 2 weeks -Follow-up with pulmonary after discharge -Please call nursing station at [phone] if any nursing or medication questions -Return to the emergency room if symptoms worsen Diet: ADA, low sodium Activity: Fall precautions Vital Signs/Physical Exam: Temp Pulse Resp BP Pulse Ox 97.8 F 78 18 127/70 93 01/14/25 08:00 01/14/25 08:00 01/14/25 08:00 01/14/25 08:00 01/14/25 08:00 Laboratory Data at Discharge: WBC 9.20 thou/uL (4.3-10.9) 01/14/25 04:25 Hgb 11.3 g/dL (13.6-17.9) L 01/14/25 04:25 Hct 32.1 % (39.6-49.0) L 01/14/25 04:25 Plt Count 153 thou/uL (152-406) 01/14/25 04:25 PT 13.1 SECONDS (10-13.0) H 01/13/25 12:50 INR 1.16 01/13/25 12:50 APTT 28.8 SECONDS (27.2-37.4) 01/13/25 12:50 Sodium 136 mEq/L (136-145) 01/14/25 04:25 Potassium 4.2 mEq/L (3.5-5.1) D 01/14/25 04:25 BUN 17 mg/dL (7-18) 01/14/25 04:25 Creatinine 0.87 mg/dL (0.70-1.30) 01/14/25 04:25 Glucose 207 mg/dL (74-106) H 01/14/25 04:25 Magnesium 1.9 mg/dL (1.6-2.4) 01/14/25 04:25 Total Bilirubin 1.6 mg/dL (0.2-1.0) H 01/13/25 12:50 AST 17 U/L (15-37) 01/13/25 12:50 ALT 26 U/L (16-61) 01/13/25 12:50 Alkaline Phosphatase 85 U/L (45-117) 01/13/25 12:50 Home Medications: Albuterol Sulfate [Proair Digihaler] 2 puff IH Q4HP PRN 03/06/24 Alfuzosin HCl [Alfuzosin HCl ER] 10 mg PO BEDTIME 03/06/24 Aspirin Chewable [Aspirin Chewable*] 81 mg PO BEDTIME 03/06/24 Fluticasone/Umeclidin/Vilanter [Trelegy Ellipta 100-62.5-25] 1 each IH DAILY 03/06/24 Irbesartan 300 mg PO DAILY 03/06/24 Multivit-Min/FA/Lycopen/Lutein [Centrum Silver Tablet] 1 each PO DAILY 03/06/24 Niacin (Inositol Niacinate) [Niacin 500 mg Capsule] 500 mg PO BEDTIME 03/06/24 [place]-3S/Dha/Epa/Fish Oil [[place]-3 Fish Oil 1,200 mg Sfgl] 1 each PO BEDTIME 03/06/24 Spironolactone [Aldactone*] 12.5 mg PO DAILY 03/06/24 Triamcinolone Acetonide [Nasacort] 10.8 ml NS BIDP PRN 03/06/24 carvediloL [Carvedilol] 6.25 mg PO BID 03/06/24 Diet: AHA Followup: Michelle Wilson [Primary Care Provider] - Daryn Flores MD [ACTIVE - CAN ADMIT] - Time spent managing pt's care (in minutes): 45
[2025-01-14] MEDS ORDERED: HOME MED 1 EA UNK (Irbesartan [Irbesartan] 300 MG Tablet) PO SCH (12:03)
[2025-01-14] MEDS: carvediloL 6.25 MG TAB PO SCH (12:03)
[2025-01-14] MEDS: SPIRONOLACTONE 25 MG TABLET PO SCH (12:03)
[2025-01-14] MEDS: ASPIRIN 81 MG CHEWABLE TABLET PO SCH (12:03)
[2025-01-14 12:14] VITALS: BP 102/59; TEMP 97.6
--- NOTE | 2025-01-14 15:49 | P.PN ---
This is an attestation to DECONTAMINATOR note Subjective: No chest pain. shortness of breath improving. No nausea or vomiting. No abdominal pain. No obvious bleeding. Looks comfortable in the be d. Ambulating in the room, feels ready to go home. Objective: General appearance: Alert and comfortable CVS: Normal S1 and S2 Lungs: Clear to auscultation bilaterally Abdomen: Soft, bowel sounds present, no tenderness Extremities: No lower extremity edema 74 yo patient with pneumonia, clinically improving, feels ready to go home, DC home on oral antibiotics, follow-up with PCP.
[2025-01-14] MEDS ORDERED: NIACIN 500 MG PO SCH (21:00)
[2025-01-14] MEDS ORDERED: NIACIN 500 MG SR TAB PO SCH (21:00)
[2025-01-15] MEDS ORDERED: VALSARTAN 160 MG TAB PO SCH (09:00)
== END 2025-01-14 12:39 | disposition home or self-care (01) | DRG 190 ==
LOC: ER 11:36 → ERHOLD 15:56 → 2ND 16:59
PROVIDERS: ADMIT Internal Medicine; ATTEND Hospitalist
DX: J44.1 Chronic obstructive pulmonary disease with (acute) exacerbation (principal); J18.9 Pneumonia, unspecified organism; J44.0 Chronic obstructive pulmonary disease with (acute) lower respiratory infection; I10 Essential (primary) hypertension; Z88.0 Allergy status to penicillin; Z11.52 Encounter for screening for COVID-19; Z79.02 Long term (current) use of antithrombotics/antiplatelets; Z87.891 Personal history of nicotine dependence; Z85.46 Personal history of malignant neoplasm of prostate; Z79.82 Long term (current) use of aspirin; Z79.52 Long term (current) use of systemic steroids; Z79.899 Other long term (current) drug therapy; Z96.641 Presence of right artificial hip joint
CPT/HCPCS: 36415; 71045; 80048; 80053; 81001; 83605; 83735; 83880; 85025; 85610; 85730; 87040; 87070; 87077; 87186; 87205; 87428; 93005; 94640; 96374; 96375; 99285; J0696; J1650; J2919; J7613; J7614; J7634; J7644